=== PATIENT | male | born 1930 | race Caucasian/White ===

== ENCOUNTER 2019-07-30 14:36 | Observation (INO) ==
[2019-07-30] MEDS ORDERED: 0.9 % Sodium Chloride 500 ML IVC ONE (15:19)
[2019-07-30 15:47] LABS: Basophils % 0.1 %; Hematocrit 43.9 % (37.5-50.1); Hemoglobin 14.1 g/dL (12.9-16.9); INR 1.2; Immature Granulocytes % 0.1 % (0-4); Lymphocytes # 0.4 K/mcL (0.6-4.6); Lymphocytes % 5.8 %; Mean Corpuscular HGB Conc 32.1 g/dL (31.6-35.5); Mean Corpuscular Hemoglobin 31.6 pg (28.0-33.3); Mean Corpuscular Volume 98.4 fL (83.0-100.0); Mean Platelet Volume 9.1 fL (9.4-12.4); Monocytes # 0.3 K/mcL (0.0-1.3); Monocytes % 4.6 %; Neutrophils # 6.2 K/mcL (1.6-8.9); Platelet Count 137 K/mcL (140-400); Prothrombin Time 13.6 Seconds (9.4-12.1); Red Blood Count 4.46 M/mcL (4.19-5.50); Red Cell Distribution Width 13.3 % (11.5-14.5); Segmented Neutrophils % 89.4 %; White Blood Count 6.9 K/mcL (4.3-11.1)
[2019-07-30 15:50] LABS: Activated Partial Thrombo Time 38.5 Seconds (26.0-36.0)
[2019-07-30 16:06] LABS: Alanine Aminotransferase 17 Units/L (7-52); Albumin 4.2 g/dL (3.5-5.7); Albumin/Globulin Ratio 1.2 (1.1-2.2); Alkaline Phosphatase 56 Units/L (34-104); Aspartate Amino Transferase 22 Units/L (13-39); BUN/Creatinine Ratio 27 (6-26); Bilirubin,Direct 0.4 mg/dL (0.0-0.2); Bilirubin,Indirect 0.8 mg/dL (0.0-1.0); Bilirubin,Total 1.2 mg/dL (0.3-1.0); Blood Urea Nitrogen 30 mg/dL (8-23); Calcium 9.3 mg/dL (8.6-10.3); Carbon Dioxide 24 mEq/L (23-29); Chloride 105 mEq/L (98-107); Globulin 3.6 g/dL (2.4-3.5); Glucose 104 mg/dL (70-105); Lipase 19 Units/L (11-82); Osmolality,Calculated 298 (280-300); Potassium 4.3 mEq/L (3.5-5.1); Sodium 141 mEq/L (136-145); Total Protein 7.8 g/dL (6.4-8.9); Troponin I < 0.03 ng/mL (< 0.04); eGFR For African Americans > 60 (> 60); eGFR For Non-African Americans > 60 (> 60)
[2019-07-30] MEDS ORDERED: Naloxone 0.4 MG/ML INJ IVP PRN (17:00)
[2019-07-31 02:02] LABS: Basophils % 0.3 %; Eosinophils # 0.1 K/mcL (0.0-0.6); Hematocrit 43.9 % (37.5-50.1); Hemoglobin 14.1 g/dL (12.9-16.9); Immature Granulocytes % 0.2 % (0-4); Lymphocytes # 0.7 K/mcL (0.6-4.6); Lymphocytes % 11.3 %; Mean Corpuscular HGB Conc 32.1 g/dL (31.6-35.5); Mean Corpuscular Hemoglobin 31.9 pg (28.0-33.3); Mean Corpuscular Volume 99.3 fL (83.0-100.0); Mean Platelet Volume 9.5 fL (9.4-12.4); Monocytes # 0.6 K/mcL (0.0-1.3); Monocytes % 9.3 %; Neutrophils # 4.7 K/mcL (1.6-8.9); Platelet Count 137 K/mcL (140-400); Red Blood Count 4.42 M/mcL (4.19-5.50); Red Cell Distribution Width 13.6 % (11.5-14.5); Segmented Neutrophils % 77.9 %
[2019-07-31 02:23] LABS: BUN/Creatinine Ratio 32 (6-26); Blood Urea Nitrogen 31 mg/dL (8-23); Carbon Dioxide 23 mEq/L (23-29); Chloride 107 mEq/L (98-107); Glucose 84 mg/dL (70-105); Osmolality,Calculated 300 (280-300); Sodium 142 mEq/L (136-145); eGFR For African Americans > 60 (> 60); eGFR For Non-African Americans > 60 (> 60)
[2019-07-31] MEDS ORDERED: Lidocaine -MPF 2% 2 ML VIAL ONE (09:57)
[2019-07-31] MEDS ORDERED: *HR* Propofol 200 MG/20 ML VIAL IVP ONE (09:57)
[2019-07-31] MEDS ORDERED: Ondansetron 4 MG/2 ML VIAL ONE (10:18)
[2019-07-31] MEDS ORDERED: Dexamethasone 4 MG/ML VIAL ONE (10:18)
[2019-07-31] MEDS ORDERED: EPHEDrine 50 MG/ML VIAL ONE (10:27)
[2019-07-31] MEDS ORDERED: *HR* EPINEPHrine 1 MG/10 ML SYRINGE INTRATRACH PRN (11:50)
[2019-07-31] MEDS ORDERED: Isovue-370 500 ML BOTTLE IVP ONE (11:56)
[2019-07-31] MEDS ORDERED: 0.9 % Sodium Chloride 500 ML ONE (12:38)
[2019-07-31 14:39] LABS: Basophils % 0.2 %; Eosinophils % 0.3 %; Hematocrit 45.9 % (37.5-50.1); Hemoglobin 14.4 g/dL (12.9-16.9); Immature Granulocytes % 0.3 % (0-4); Lymphocytes # 0.2 K/mcL (0.6-4.6); Lymphocytes % 3.4 %; Mean Corpuscular HGB Conc 31.4 g/dL (31.6-35.5); Mean Corpuscular Hemoglobin 31.6 pg (28.0-33.3); Mean Corpuscular Volume 100.9 fL (83.0-100.0); Mean Platelet Volume 9.2 fL (9.4-12.4); Monocytes # 0.1 K/mcL (0.0-1.3); Monocytes % 2.2 %; Neutrophils # 6.1 K/mcL (1.6-8.9); Platelet Count 128 K/mcL (140-400); Red Blood Count 4.55 M/mcL (4.19-5.50); Red Cell Distribution Width 13.6 % (11.5-14.5); Segmented Neutrophils % 93.6 %; White Blood Count 6.5 K/mcL (4.3-11.1)
[2019-07-31] MEDS: 0.9 % Sodium Chloride 1,000 ML IVC SCH (14:40)
[2019-07-31] MEDS: Pantoprazole 40 MG in 0.9 % Sodium Chloride Mini Bag 100 ML IVC SCH ×2 (14:51→19:38)
[2019-07-31] MEDS: D5% in 0.9% NACL 1,000 ML IVC SCH (14:51)
[2019-07-31 20:06] LABS: Hematocrit 43.8 % (37.5-50.1); Hemoglobin 14.1 g/dL (12.9-16.9)
[2019-08-01] MEDS: Pantoprazole 40 MG in 0.9 % Sodium Chloride Mini Bag 100 ML IVC SCH ×4 (00:28→18:28)
[2019-08-01 02:39] LABS: Basophils % 0.1 %; Hematocrit 41.9 % (37.5-50.1); Immature Granulocytes % 0.4 % (0-4); Lymphocytes # 0.4 K/mcL (0.6-4.6); Lymphocytes % 4.4 %; Mean Corpuscular Hemoglobin 31.4 pg (28.0-33.3); Mean Corpuscular Volume 101.2 fL (83.0-100.0); Mean Platelet Volume 9.5 fL (9.4-12.4); Monocytes # 0.7 K/mcL (0.0-1.3); Monocytes % 7.1 %; Neutrophils # 8.8 K/mcL (1.6-8.9); Platelet Count 111 K/mcL (140-400); Red Blood Count 4.14 M/mcL (4.19-5.50); Red Cell Distribution Width 13.7 % (11.5-14.5)
[2019-08-01 02:41] LABS: Hematocrit 40.8 % (37.5-50.1); Hemoglobin 12.6 g/dL (12.9-16.9)
[2019-08-01 03:01] LABS: Alanine Aminotransferase 15 Units/L (7-52); Albumin 3.6 g/dL (3.5-5.7); Albumin/Globulin Ratio 1.1 (1.1-2.2); Alkaline Phosphatase 46 Units/L (34-104); Aspartate Amino Transferase 22 Units/L (13-39); BUN/Creatinine Ratio 32 (6-26); Bilirubin,Total 0.7 mg/dL (0.3-1.0); Blood Urea Nitrogen 24 mg/dL (8-23); Calcium 8.1 mg/dL (8.6-10.3); Calcium 8.2 mg/dL (8.6-10.3); Carbon Dioxide 23 mEq/L (23-29); Carbon Dioxide 24 mEq/L (23-29); Chloride 109 mEq/L (98-107); Chloride 110 mEq/L (98-107); Globulin 3.3 g/dL (2.4-3.5); Glucose 136 mg/dL (70-105); Glucose 139 mg/dL (70-105); Osmolality,Calculated 294 (280-300); Potassium 4.2 mEq/L (3.5-5.1); Potassium 4.4 mEq/L (3.5-5.1); Sodium 139 mEq/L (136-145); Total Protein 6.9 g/dL (6.4-8.9); eGFR For African Americans > 60 (> 60); eGFR For Non-African Americans > 60 (> 60)
[2019-08-01 03:02] LABS: Magnesium 2.3 mg/dL (1.6-2.6); Phosphorous 3.3 mg/dL (2.7-4.5)
[2019-08-01] MEDS: D5% in 0.9% NACL 1,000 ML IVC SCH ×2 (03:02→11:40)
[2019-08-01] MEDS: 0.9 % Sodium Chloride 1,000 ML IVC SCH (03:03)
[2019-08-01 08:26] LABS: Hematocrit 39.4 % (37.5-50.1); Hemoglobin 12.5 g/dL (12.9-16.9)
[2019-08-01] MEDS ORDERED: Naloxone 0.4 MG/ML INJ IVP PRN (11:40)
[2019-08-01] MEDS ORDERED: Piperacillin/Tazobactam 3.375 GM in 0.9 % Sodium Chloride Mini Bag 100 ML IVPB SCH (12:00)
[2019-08-01 13:55] LABS: Hematocrit 38.8 % (37.5-50.1); Hemoglobin 12.6 g/dL (12.9-16.9)
[2019-08-01] MEDS: Piperacillin/Tazobactam 3.375 GM in 0.9 % Sodium Chloride Mini Bag 100 ML IVPB SCH (14:41)
[2019-08-01 20:07] LABS: Hematocrit 43.5 % (37.5-50.1); Hemoglobin 13.6 g/dL (12.9-16.9)
[2019-08-02] MEDS: Pantoprazole 40 MG in 0.9 % Sodium Chloride Mini Bag 100 ML IVC SCH ×3 (00:06→10:43)
[2019-08-02 02:28] LABS: Basophils % 0.3 %; Eosinophils # 0.2 K/mcL (0.0-0.6); Eosinophils % 3.5 %; Hemoglobin 12.8 g/dL (12.9-16.9); Immature Granulocytes % 0.3 % (0-4); Lymphocytes % 16.6 %; Mean Corpuscular Hemoglobin 32.2 pg (28.0-33.3); Mean Corpuscular Volume 100.8 fL (83.0-100.0); Mean Platelet Volume 9.4 fL (9.4-12.4); Monocytes # 0.4 K/mcL (0.0-1.3); Monocytes % 6.1 %; Neutrophils # 4.6 K/mcL (1.6-8.9); Platelet Count 105 K/mcL (140-400); Red Blood Count 3.97 M/mcL (4.19-5.50); Red Cell Distribution Width 13.6 % (11.5-14.5); Segmented Neutrophils % 73.2 %; White Blood Count 6.3 K/mcL (4.3-11.1)
[2019-08-02] MEDS: D5% in 0.9% NACL 1,000 ML IVC SCH (02:41)
[2019-08-02 02:48] LABS: BUN/Creatinine Ratio 21 (6-26); Blood Urea Nitrogen 17 mg/dL (8-23); Carbon Dioxide 23 mEq/L (23-29); Chloride 110 mEq/L (98-107); Glucose 90 mg/dL (70-105); Osmolality,Calculated 289 (280-300); Potassium 3.8 mEq/L (3.5-5.1); Sodium 139 mEq/L (136-145); eGFR For African Americans > 60 (> 60); eGFR For Non-African Americans > 60 (> 60)
[2019-08-02] MEDS: Piperacillin/Tazobactam 3.375 GM in 0.9 % Sodium Chloride Mini Bag 100 ML IVPB SCH (05:51)
[2019-08-02 06:51] VITALS: BP 113/74
[2019-08-02] MEDS ORDERED: Piperacillin/Tazobactam 3.375 GM in 0.9 % Sodium Chloride Mini Bag 100 ML IVPB SCH (07:00)
[2019-08-02] MEDS ORDERED: Sucralfate 1 GM TABLET PO SCH (16:30)
== END 2019-08-02 15:35 | disposition home or self-care (01) ==
LOC: 3BNU 14:36 → EMEROOARM 14:36 → SUATTDRO 17:02 → 3BNU 17:47 → ICNU 07-31 13:38 → 3ANU 08-01 17:00
PROVIDERS: ADMIT Internal Medicine; ATTEND Family Medicine
PROC: ENDOEFB (2019-07-31 11:35)